=== PATIENT | female | born 1950 | race Caucasian/White ===

== ENCOUNTER → 2021-01-17 | Outpatient (CLI) | payer MEDICARE ==
[~2021-01-17] MED LIST: HYDROXYZINE HCL25 MG PO; IPRAT-ALBUT 0.5-3 ML INH; LYRICA20 MG/1 ML PO; NORCO 10-325 T1 EACH PO; PREDNISONE 20 M20 MG PO; VENTOLIN HFA 66.7 GM INH
== END ==
LOC: KOH-I 16:31
DX: J44.9 Chronic obstructive pulmonary disease, unspecified (principal); M51.9 Unspecified thoracic, thoracolumbar and lumbosacral intervertebral disc disorder; E55.9 Vitamin D deficiency, unspecified; E06.3 Autoimmune thyroiditis
CPT/HCPCS: 71046

== ENCOUNTER 2021-01-22 12:16 | Inpatient (IN) | payer MEDICARE, MEDICAID ==
[~2021-01-22] VITALS: Ht 165.1 cm; Wt 54.0 kg
[~2021-01-22 12:16] MED LIST changes: +VITAMIN C 500500 MG PO; +VITAMIN D325 MCG PO; +ZINC50 M3 PO
[2021-01-22 12:52] LABS: HEMOGLOBIN 14.3 gm/dl (12.3-15.3); RED BLOOD COUNT 4.67 M/UL (4.00-5.10); WHITE BLOOD COUNT 21.9 K/UL (4.5-11.0)
[2021-01-22 13:20] LABS: BUN/CREATININE RATIO 38 (0-10)
[2021-01-22] MEDS ORDERED: BREZTRI AEROS10.7 GM INH (15:57)
[2021-01-22] MEDS ORDERED: BUSPIRONE HCL15 MG PO (15:59)
[2021-01-22] MEDS ORDERED: LYRICA200 MG PO (16:07)
[2021-01-22] MEDS ORDERED: AMITIZA8 MCG PO (16:09)
[2021-01-23 04:07] LABS: HEMOGLOBIN 13.4 gm/dl (12.3-15.3); RED BLOOD COUNT 4.37 M/UL (4.00-5.10)
[2021-01-23 04:11] LABS: WHITE BLOOD COUNT 14.5 K/UL (4.5-11.0)
[2021-01-23 04:25] LABS: BUN/CREATININE RATIO 44 (0-10)
[2021-01-24 03:30] LABS: HEMOGLOBIN 13.3 gm/dl (12.3-15.3); RED BLOOD COUNT 4.36 M/UL (4.00-5.10); WHITE BLOOD COUNT 14.1 K/UL (4.5-11.0)
[2021-01-24 04:00] LABS: BUN/CREATININE RATIO 42 (0-10)
[2021-01-25 08:11] LABS: RED BLOOD COUNT 4.3 M/UL (4.00-5.10); WHITE BLOOD COUNT 12.5 K/UL (4.5-11.0)
[2021-01-25 08:37] LABS: BUN/CREATININE RATIO 35 (0-10)
[2021-01-26 09:38] LABS: HEMOGLOBIN 13.4 gm/dl (12.3-15.3); RED BLOOD COUNT 4.34 M/UL (4.00-5.10); WHITE BLOOD COUNT 12.2 K/UL (4.5-11.0)
[2021-01-26 10:23] LABS: BUN/CREATININE RATIO 22 (0-10)
[2021-01-28 10:27] LABS: RED BLOOD COUNT 4.51 M/UL (4.00-5.10)
[2021-01-28 10:52] LABS: BUN/CREATININE RATIO 21 (0-10)
[2021-01-28] MEDS ORDERED: OMNICEF 300 MG300 MG PO (15:42)
[2021-01-28] MEDS ORDERED: HEMADY20 MG PO (15:42)
[2021-01-28] MEDS ORDERED: NICOTINE PATCH1 EAC2 TD (15:42)
[2021-01-28] MEDS ORDERED: PROTONIX 40 MG40 M1 PO (15:42)
[2021-01-28] MEDS ORDERED: K-DUR TAB 10 M10 MEQ PO (16:35)
== END 2021-01-28 18:30 | disposition home or self-care (01) | DRG 871 ==
LOC: ER1 12:16 → CDU 14:20 → PROG CARE 14:20 → M/S 14:20 → PROG CARE 20:52 → M/S 01-24 22:30
PROVIDERS: Emergency Medicine; Internal Medicine; ADMIT Internal Medicine
PROC: 8E0ZXY6 Isolation (ICD-10-PCS; principal; 2021-01-22)
PROC: XW033E5 Introduction of Remdesivir Anti-infective into Peripheral Vein, Percutaneous Approach, New Technology Group 5 (ICD-10-PCS; 2021-01-22)
PROC: 3E0333Z Introduction of Anti-inflammatory into Peripheral Vein, Percutaneous Approach (ICD-10-PCS; 2021-01-22)
DX: A41.89 Other specified sepsis (principal); U07.1 COVID-19; J96.01 Acute respiratory failure with hypoxia; J12.82 Pneumonia due to coronavirus disease 2019; G93.41 Metabolic encephalopathy; J44.0 Chronic obstructive pulmonary disease with (acute) lower respiratory infection; R64 Cachexia; Z68.1 Body mass index [BMI] 19.9 or less, adult; R65.20 Severe sepsis without septic shock; F17.210 Nicotine dependence, cigarettes, uncomplicated; E78.5 Hyperlipidemia, unspecified; M19.90 Unspecified osteoarthritis, unspecified site; I10 Essential (primary) hypertension; F41.9 Anxiety disorder, unspecified; M79.7 Fibromyalgia; G89.29 Other chronic pain; E11.9 Type 2 diabetes mellitus without complications; R19.7 Diarrhea, unspecified; Z90.49 Acquired absence of other specified parts of digestive tract; Z90.710 Acquired absence of both cervix and uterus; Z99.81 Dependence on supplemental oxygen; Z91.14 Patient's other noncompliance with medication regimen; Z79.4 Long term (current) use of insulin
CPT/HCPCS: 36415; 36600; 71045; 71275; 80053; 81001; 82140; 82550; 82553; 82803; 82962; 83036; 83605; 83735; 83874; 83880; 84100; 84484; 85025; 85027; 85379; 85652; 86140; 87040; 87081; 93005; 94640; 94664; 94760; 96374; 96375; 97110-GP-CQ; 97116-GP-CQ; 97161; 97530; 97530-GP-CQ; 99285; J0456; J0696; J1100; J1335; J1650; J2405; J7030; J7040; J7050; Q9967; U0002

== ENCOUNTER 2022-01-25 21:15 | Emergency (ER) | payer MEDICARE ==
[~2022-01-25 21:15] MED LIST changes: +AMITIZA8 MCG PO; +BREZTRI AEROS10.7 GM INH; +BUSPIRONE HCL15 MG PO; +HEMADY20 MG PO; +K-DUR TAB 10 M10 MEQ PO; +LYRICA200 MG PO; +NICOTINE PATCH1 EAC2 TD; +OMNICEF 300 MG300 MG PO; +PROTONIX 40 MG40 M1 PO
[2022-01-26] MEDS ORDERED: PROVENTIL HFA6.7 GM INH (00:11)
[2022-01-26] MEDS ORDERED: WIXELA 250-501 EACH INH (00:11)
[2022-01-26] MEDS ORDERED: PREDNISONE 20 M20 MG PO (00:11)
== END 2022-01-26 07:00 | disposition home or self-care (01) ==
LOC: ER1 21:15
DX: R06.02 Shortness of breath (principal); R51.9 Headache, unspecified; Z20.822 Contact with and (suspected) exposure to COVID-19
CPT/HCPCS: 36600; 82550; 82553; 82803; 83605; 84484; 85652; 86140; 87040; 93005; 94664; 96374; 99281; J1100; Q9967; U0002